=== PATIENT | male | born 1980 | race Caucasian/White ===

== ENCOUNTER → 2017-02-06 | Outpatient (CLI) | payer BC ==
[~2017-02-06] MED LIST: ASPEC81 PO; OXYC-57 PO
[2017-02-06 18:08] LABS: BLOOD UREA NITROGEN 14 mg/dl (7-18); CALCIUM 9.3 mg/dl (8.5-10.1); CARBON DIOXIDE 30 mmol/L (21-32); CHLORIDE 107 mmol/L (98-107); GLUCOSE 71 mg/dl (70-99); POTASSIUM 3.8 mmol/L (3.5-5.1); SODIUM 142 mmol/L (136-145)
== END | disposition home or self-care (01) ==
LOC: C.LABBFT 14:57
PROVIDERS: ATTEND Nurse Practitioner
DX: R39.9 Unspecified symptoms and signs involving the genitourinary system (principal); R35.0 Frequency of micturition

== ENCOUNTER → 2017-02-07 | Outpatient (CLI) | payer BC ==
[2017-02-09 01:34] LABS: CHLAMYDIA TRACH RNA*** NOT DETECTED (NOT DETECTED); GC (NEIS GONORRHOEAE)RNA** NOT DETECTED (NOT DETECTED)
== END | disposition home or self-care (01) ==
LOC: C.LABSPEC 12:25
PROVIDERS: ATTEND Nurse Practitioner
DX: R39.9 Unspecified symptoms and signs involving the genitourinary system (principal); R35.0 Frequency of micturition

== ENCOUNTER → 2017-02-12 | Outpatient (CLI) | payer BC ==
--- NOTE | 2017-02-12 08:33 | DIAGNOSTIC IMAGING REPORT ---
BLADDER ULTRASOUND, PRE AND POST VOID CLINICAL HISTORY: Urinary symptoms. COMPARISON STUDY: No previous studies for comparison. TECHNIQUE: Pre and post void sonography of the bladder was performed. FINDINGS: The prevoid bladder volume was 66 cc. Postvoid volume was 1 cc. The ureteral jets were not visualized. No bladder mass is identified by sonography. IMPRESSION: 1. Unremarkable bladder ultrasound. 2. No significant postvoid residual. Electronically signed by: Joseph Moreland M.D. 02/12/2017 8:32 AM Dictated Date/Time: 02/12/2017 8:22 AM
== END | disposition home or self-care (01) ==
LOC: C.ULTR 06:57
PROVIDERS: ATTEND Nurse Practitioner
DX: R35.0 Frequency of micturition (principal); R39.9 Unspecified symptoms and signs involving the genitourinary system

== ENCOUNTER 2017-08-04 11:09 | Inpatient (IN) | payer BC ==
[~2017-08-04] VITALS: Ht 190.5 cm; Wt 96.3 kg
[~2017-08-04 11:09] MED LIST changes: -ASPEC81 PO
[2017-08-04] MEDS ORDERED: SODIUM CHLORIDE 0.9% 1000ML 1,000 ML IV SCH (11:16)
[2017-08-04 11:34] LABS: BASO % 0.6 %; BASO ABS # 0.03 K/uL (0-0.2); COMPLETE YES; EOS % 6.4 %; HEMATOCRIT 50.5 % (42-52); IG% 0.2 %; LYMPH % 23.3 %; LYMPH ABS # 1.24 K/uL (1.2-3.4); MEAN CELL VOLUME 91.3 fL (80-100); MONO % 10.9 %; NEUT % 58.6 %; PLATELET COUNT 156 K/uL (130-400); RED BLOOD COUNT 5.53 M/uL (4.7-6.1); WHITE BLOOD COUNT 5.33 K/uL (4.8-10.8)
[2017-08-04 11:43] LABS: PARTIAL THROMBOPLASTIN RATIO 1.1; PROTHROMBIN TIME (PATIENT) 10.4 SECONDS (9.0-12.0)
--- NOTE | 2017-08-04 11:50 | DIAGNOSTIC IMAGING REPORT ---
CT OF THE HEAD WITHOUT CONTRAST CLINICAL HISTORY: Left-sided weakness. Stroke alert. COMPARISON STUDY: No previous studies for comparison. CT DOSE: 614.27 mGy.cm TECHNIQUE: Helical axial images of the head were obtained without IV contrast. Automated exposure control was utilized for the study. A dose lowering technique was utilized adhering to the principles of ALARA. FINDINGS: No acute intracranial hemorrhage, midline shift or mass effect is present. Ventricular system is normal. Basilar cisterns are patent. There are no extra axial collections. Tom-white differentiation is maintained and there are no findings to suggest acute dural sinus thrombosis or acute territorial infarct. Right maxillary sinus is largely opacified and likely contains a mucous retention cyst. There are no significant calvarial abnormalities. There is moderate mucosal thickening of the ethmoid sinuses and mild mucosal thickening of the left maxillary sinus. IMPRESSION: No acute intracranial findings. Electronically signed by: Joseph Moreland M.D. 08/04/2017 11:48 AM Dictated Date/Time: 08/04/2017 11:45 AM
[2017-08-04 11:55] LABS: ISTAT CREATININE 1.3 mg/dl (0.6-1.3); ISTAT HEMOGLOBIN 17.7 g/dl (14.0-18.0); ISTAT IONIZED CALCIUM 1.18 mmol/l (1.12-1.32)
--- NOTE | 2017-08-04 12:00 | DIAGNOSTIC IMAGING REPORT ---
CHEST ONE VIEW PORTABLE CLINICAL HISTORY: Stroke COMPARISON STUDY: Chest radiograph August 14, 2012. FINDINGS: Lung volumes are normal. There is an azygos fissure. Lungs are clear. No pneumothorax or pleural effusion is present. Cardiomediastinal silhouette is normal. Pulmonary vascularity is normal. IMPRESSION: No acute cardiopulmonary findings. Electronically signed by: Joseph Moreland M.D. 08/04/2017 11:59 AM Dictated Date/Time: 08/04/2017 11:58 AM
[2017-08-04 12:02] LABS: BLOOD UREA NITROGEN 18 mg/dl (7-18); BUN/CREATININE RATIO 12.3 (10-20); CALCIUM 8.9 mg/dl (8.5-10.1); CARBON DIOXIDE 27 mmol/L (21-32); CHLORIDE 102 mmol/L (98-107); CREATININE 1.43 mg/dl (0.60-1.40)
--- NOTE | 2017-08-04 12:03 | EMERGENCY ROOM VISIT NOTE ---
History Report prepared by Benjaminibporter: Heriberto Marti Under the Supervision of: Dr. Sridhar Jimenez M.D. 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 History of Present Illness The patient is a 37 year old male who presents to the Emergency Room with complaints of persistent numbness and weakness in the left side of body 45 minutes prior to arrival. He was stepping into a "third loader" this morning when he suddenly felt weak in the left side. He reports there wasn't enough strength in his left arm to move it. He also notes he was short of breath. The patient states he takes no daily medications and has no chronic medical problems. 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 A total of 10 systems reviewed and were otherwise negative. Past Medical & Surgical Medical Problems: (1) No significant past medical history Social History Smoking Status: Never Smoker Smokeless Tobacco Use: No Alcohol Use: occasionally Drug Use: none Marital Status: Housing Status: lives with family Occupation Status: employed Current/Historical Medications No Active Prescriptions or Reported Meds Allergies Coded Allergies: No Known Allergies (Unverified , NONE, 12/12/08) Physical Exam Vital Signs Date Time Temp Pulse Resp B/P (MAP) Pulse Ox O2 Delivery O2 Flow Rate FiO2 08/04/17 13:27 106 16 126/83 99 Room Air 08/04/17 12:46 77 18 133/92 97 Room Air 08/04/17 12:00 77 18 145/95 96 Room Air 08/04/17 11:55 96 Room Air 08/04/17 11:45 77 18 138/92 95 Room Air 08/04/17 11:19 98 08/04/17 11:10 36.7 98 18 147/88 94 Room Air Physical Exam GENERAL: Patient is a healthy-appearing well-nourished 37 year old male. HEAD: Normocephalic atraumatic EYES: Ocular movements intact pupils equal and react to light OROPHARYNX mucous membranes are moist no exudates present no erythema or edema present NECK: Supple no nuchal rigidity CHEST: Good equal expansion LUNGS: Clear and equal to auscultation CARDIAC: Normal S1 and S2 ABDOMEN: Soft nontender no guarding BACK: No CVA tenderness EXTREMITIES: No pain upon palpation normal muscle strength in all groups no clubbing cyanosis or edema. 5/5 strength bilaterally in both arms and both legs. NEURO: Patient is following commands and answering questions appropriately. Alert and oriented x3 Cranial Nerves 2-12 grossly intact Medical Decision & Procedures ER Provider Diagnostic Interpretation: Radiology results as stated below per my review and radiologist interpretation: CT OF THE HEAD WITHOUT CONTRAST CLINICAL HISTORY: Left-sided weakness. Stroke alert. COMPARISON STUDY: No previous studies for comparison. CT DOSE: 614.27 mGy.cm TECHNIQUE: Helical axial images of the head were obtained without IV contrast. Automated exposure control was utilized for the study. A dose lowering technique was utilized adhering to the principles of ALARA. FINDINGS: No acute intracranial hemorrhage, midline shift or mass effect is present. Ventricular system is normal. Basilar cisterns are patent. There are no extra axial collections. Tom-white differentiation is maintained and there are no findings to suggest acute dural sinus thrombosis or acute territorial infarct. Right maxillary sinus is largely opacified and likely contains a mucous retention cyst. There are no significant calvarial abnormalities. There is moderate mucosal thickening of the ethmoid sinuses and mild mucosal thickening of the left maxillary sinus. IMPRESSION: No acute intracranial findings. Electronically signed by: Joseph Moreland M.D. 08/04/2017 11:48 AM CHEST ONE VIEW PORTABLE CLINICAL HISTORY: Stroke COMPARISON STUDY: Chest radiograph August 14, 2012. FINDINGS: Lung volumes are normal. There is an azygos fissure. Lungs are clear. No pneumothorax or pleural effusion is present. Cardiomediastinal silhouette is normal. Pulmonary vascularity is normal. IMPRESSION: No acute cardiopulmonary findings. Electronically signed by: Joseph Moreland M.D. 08/04/2017 11:59 AM Laboratory Results 08/04/17 11:20 Red Blood Count 5.53, Mean Corpuscular Volume 91.3, Mean Corpuscular Hemoglobin 32.0, Mean Corpuscular Hemoglobin Concent 35.0, Mean Platelet Volume 12.0, Neutrophils (%) (Auto) 58.6, Lymphocytes (%) (Auto) 23.3, Monocytes (%) (Auto) 10.9, Eosinophils (%) (Auto) 6.4, Basophils (%) (Auto) 0.6, Neutrophils # (Auto ) 3.13, Lymphocytes # (Auto) 1.24, Monocytes # (Auto) 0.58, Eosinophils # (Auto ) 0.34, Basophils # (Auto) 0.03 08/04/17 11:20 08/04/17 13:02 Test 08/04/17 11:20 08/04/17 11:43 08/04/17 11:45 08/04/17 11:48 White Blood Count 5.33 K/uL (4.8-10.8) Red Blood Count 5.53 M/uL (4.7-6.1) Hemoglobin 17.7 g/dL (14.0-18.0) Hematocrit 50.5 % (42-52) Mean Corpuscular Volume 91.3 fL (80-100) Mean Corpuscular Hemoglobin 32.0 pg (25-34) Mean Corpuscular Hemoglobin Concent 35.0 g/dl (32-36) Platelet Count 156 K/uL (130-400) Mean Platelet Volume 12.0 fL (7.4-10.4) Neutrophils (%) (Auto) 58.6 % Lymphocytes (%) (Auto) 23.3 % Monocytes (%) (Auto) 10.9 % Eosinophils (%) (Auto) 6.4 % Basophils (%) (Auto) 0.6 % Neutrophils # (Auto) 3.13 K/uL (1.4-6.5) Lymphocytes # (Auto) 1.24 K/uL (1.2-3.4) Monocytes # (Auto) 0.58 K/uL (0.11-0.59) Eosinophils # (Auto) 0.34 K/uL (0-0.5) Basophils # (Auto) 0.03 K/uL (0-0.2) RDW Standard Deviation 42.3 fL (36.4-46.3) RDW Coefficient of Variation 12.7 % (11.5-14.5) Immature Granulocyte % (Auto) 0.2 % Immature Granulocyte # (Auto) 0.01 K/uL (0.00-0.02) Prothrombin Time 10.4 SECONDS (9.0-12.0) Prothromb Time International Ratio 1.0 (0.9-1.1) Activated Partial Thromboplast Time 27.3 SECONDS (21.0-31.0) Partial Thromboplastin Ratio 1.1 Est Creatinine Clear Calc Drug Dose 84.5 ml/min Estimated GFR () 72.0 Estimated GFR (Non- 62.1 BUN/Creatinine Ratio 12.3 (10-20) Calcium Level 8.9 mg/dl (8.5-10.1) Creatine Kinase MB 1.0 ng/ml (0.5-3.6) Creatine Kinase MB Ratio (0-3.0) Troponin I < 0.015 ng/ml (0-0.045) Bedside Hemoglobin 17.7 g/dl (14.0-18.0) Bedside Hematocrit 52 % (42-52) Bedside Sodium 139 mEq/L (135-144) Bedside Potassium 3.8 mEq/L (3.3-5.0) Bedside Chloride 101 mEq/L (101-112) Bedside Total CO2 27 mEq/l (24-31) Anion Gap 16.0 mmol/L (16-25) Bedside Blood Urea Nitrogen 19 mg/dl (7-18) Bedside Creatinine 1.3 mg/dl (0.6-1.3) Bedside Glucose (other) 121 mg/dl (70-99) Bedside Ionized Calcium (Sissy) 1.18 mmol/l (1.12-1.32) Bedside Troponin I < 0.030 ng/ml (0-0.045) Bedside Prothrombin Time INR 1.0 (0.9-1.1) Test 08/04/17 13:02 08/04/17 13:25 Magnesium Level 2.5 mg/dl (1.8-2.4) Total Creatine Kinase 129 U/L (39-308) Chemistry Specimen Hemolysis Urine Color YELLOW Urine Appearance CLEAR (CLEAR) Urine pH 7.5 (4.5-7.5) Urine Specific [place] 1.019 (1.000-1.030) Urine Protein NEG (NEG) Urine Glucose (UA) NEG (NEG) Urine Ketones NEG (NEG) Urine Occult Blood NEG (NEG) Urine Nitrite NEG (NEG) Urine Bilirubin NEG (NEG) Urine Urobilinogen NEG (NEG) Urine Leukocyte Esterase NEG (NEG) Labs reviewed by ED physician. Medications Administered Medications (Trade) Dose Ordered Sig/Zeinab Route Start Time Stop Time Status Last Admin Dose Admin Sodium Chloride 1,000 ml @ 50 mls/hr Q20H IV 08/04/17 11:16 08/04/17 14:38 DC 08/04/17 12:14 50 MLS/HR Magnesium Sulfate (Magnesium Sulfate) 1 gm NOW STAT IV 08/04/17 12:07 08/04/17 12:08 DC 08/04/17 12:41 1 GM Aspirin (Aspirin Chew) 324 mg NOW STAT PO 08/04/17 12:21 08/04/17 12:22 DC 08/04/17 12:44 324 MG Sodium Chloride 1,000 ml @ 999 mls/hr Q1H1M STAT IV 08/04/17 12:21 08/04/17 13:21 DC 08/04/17 12:44 999 MLS/HR ECG Indication: weakness Rate (beats per minute): 79 Rhythm: normal sinus Findings: no acute ischemic change, no ectopy ED Course 1130: Past medical records reviewed. The patient was evaluated in room B1. A complete history and physical examination was performed. 1116: Sodium Chloride 1,000 mL IV 1147: I spoke with Dr. Moreland, [facility] radiology. The patient's CT looks normal. 1151: I spoke with Dr. Garcia, [facility] Stroke Neurology. We discussed the patients case. The patient will be further evaluated. 1207: Magnesium Sulfate 1 gm IV 1221: Sodium 1,000 mL IV, Aspirin 324 mg PO. 1223: I reassessed the patient at this time. He is feeling better and resting comfortably. I discussed my recommendation that he stay in the hospital for further management. He verbalized complete understanding and agreement. 1227: I spoke with Dr. Zamora, [facility] Hospitalist. We discussed the patients case. The patient will be further evaluated. Medical Decision Prior records/ancillary studies reviewed and summarized above. Nursing notes reviewed. The patient's history was concerning for: Differential diagnosis: Etiologies such as metabolic, infection, hypo/hyperglycemia, electrolyte abnormalities, cardiac sources, intracerebral event, toxicologic, neurologic, as well as others were entertained. This is a 37-year-old male who presents emergency department one hour after he had a sudden onset of left leg and arm weakness. In addition to this he also had numbness and tingling to both his arm and leg in a stocking glove distribution. Based on these findings the patient was sent for CAT scan of the head. In the case was discussed with the on-call neurologist from [place]. He recommended that the patient receive a fluid bolus, aspirin and be admitted for stroke Workup. I did discuss the case with the hospitalist service who agreed to admit the patient. Patient was in agreement with the treatment plan. Medication Reconcilliation Current Medication List: was personally reviewed by me Blood Pressure Screening Patient's blood pressure: Elevated blood pressure Blood pressure disposition: Referred to PCP Consults Time Called: 1145 Consulting Physician: Dr. Garcia, [facility] St[facility] Neurology Returned Call: [address] Garcia, [facility] Stroke Neurology. We discussed the patients case. The patient will be further evaluated. Additional Consults: Time Called: 1225 Consulted Physician: Dr. Zamora, [facility] Hospitalist Returned Call: 1227 Additional Comments: I discussed the patients case with Dr. Zamora [facility] Hospitalist. The patient will be further evaluated. Impression Primary Impression: Left-sided weakness Scribe Attestation The scribe's documentation has been prepared under my direction and personally reviewed by me in its entirety. I confirm that the note above accurately reflects all work, treatment, procedures, and medical decision making performed by me. Departure Information Dispostion Being Evaluated By Hospitalist Prescriptions No Active Prescriptions or Reported Meds Referrals Durga Merida M.D. (PCP) Forms HOME CARE DOCUMENTATION FORM, IMPORTANT VISIT INFORMATION Patient Instructions My [facility]
[2017-08-04] MEDS ORDERED: MAGNESIUM SULFATE 1GM / D5W 1 GM BAG IV STA (12:07)
[2017-08-04] MEDS ORDERED: SODIUM CHLORIDE 0.9% 1000ML 1,000 ML IV STA (12:21)
[2017-08-04] MEDS ORDERED: ASPIRIN 81 MG CHEW PO STA (12:21)
[2017-08-04 12:52] LABS: GLUCOSE 127 mg/dl (70-99); SODIUM 136 mmol/L (136-145)
--- NOTE | 2017-08-04 13:08 | History and Physical ---
History & Physical Date & Time of Service: Aug 04, 2017 at 12:58 Chief Complaint: Left Arm Tingling, Sob, Tingling In Legs Primary Care Physician: Durga Merida M.D. History of Present Illness Mr. Patel presented to the ED this morning for left sided weakness. He began to feel symptoms at 1030 this morning doing outdoor work with a neighbor when he started having numbness and weakness in his left arm and left leg so he had his drive him to the ED. He had accompanying sob and dizziness. No headache or visual changes. Family did not see any facial droop, no change in speech. He began to feel his symptoms subside after he returned from CT scan. He does note that he has been experiencing left hand numbness on and off for a week but thought that it was carpal tunnel. No palpitations or chest pain. He has no significant past medical history and takes no medications. No history of migraine or headaches. 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 He has had a little bit of a cold - upper respiratory symptoms. He has had a little more stress than usual with his business but does not feel it is significant. Eating and drinking normally. He normally does not drink much during the day. A stroke alert was called and the ED discussed the patient with the [facility] neurologist and the decision was made not to administer tPA Family medical history includes father with CHF with pacer, htn and DM. Mother has htn. Siblings have no significant medical history. Social History Smoking Status: Current Every Day Smoker (1 cigarrette a week or so) Smokeless Tobacco Use: No Alcohol Use: socially (drinks once a week beer) Drug Use: none Marital Status: Housing status: lives with family (three daughters) Occupational Status: employed Multi-Drug Resistant Organisms History of MDRO: No Allergies Coded Allergies: No Known Allergies (Unverified , NONE, 12/12/08) Home Medications No Active Prescriptions or Reported Meds Review of Systems Constitutional: No fever, No chills, No weight loss Eyes: + problem reported (difficulty focusing, felt drunk when numbness started ) ENT: + nasal symptoms (nasal congestion) Respiratory: + shortness of breath, No cough (resolved now, but did have sob when numbness started) Abdomen: + nausea (Nauseas this morning), No vomiting, No diarrhea, No constipation Genitourinary - Male: No dysuria Neurologic: + numbness/tingling (see HPI) Physical Exam Vital Signs Date Time Temp Pulse Resp B/P (MAP) Pulse Ox O2 Delivery O2 Flow Rate FiO2 08/04/17 12:46 77 18 133/92 97 Room Air 08/04/17 12:00 77 18 145/95 96 Room Air 08/04/17 11:55 96 Room Air 08/04/17 11:45 77 18 138/92 95 Room Air 08/04/17 11:19 98 08/04/17 11:10 36.7 98 18 147/88 94 Room Air General: no distress Eyes: normal inspection, PERLL Respiratory: chest non tender, clear to auscultation, normal breath sounds, no respiratory distress, no accessory muscle use Cardiac: regular rate and rhythm, no rub or gallop, no murmur, no edema, no jvd GI/: active bowel sounds, no abd pain or tenderness, soft, non distended Extremities: normal range of motion, normal strength, non tender Neuro/Psych: alert and oriented x 3, normal mood and affect, decreased sensation left foot and ankle Skin: normal color, dry Diagnostics Laboratory Results Results Past 24 Hours Test 08/04/17 11:20 08/04/17 11:43 08/04/17 11:45 08/04/17 11:48 Range/Units White Blood Count 5.33 4.8-10.8 K/uL Red Blood Count 5.53 4.7-6.1 M/uL Hemoglobin 17.7 14.0-18.0 g/dL Hematocrit 50.5 42-52 % Mean Corpuscular Volume 91.3 80-100 fL Mean Corpuscular Hemoglobin 32.0 25-34 pg Mean Corpuscular Hemoglobin Concent 35.0 32-36 g/dl Platelet Count 156 130-400 K/uL Mean Platelet Volume 12.0 7.4-10.4 fL Neutrophils (%) (Auto) 58.6 % Lymphocytes (%) (Auto) 23.3 % Monocytes (%) (Auto) 10.9 % Eosinophils (%) (Auto) 6.4 % Basophils (%) (Auto) 0.6 % Neutrophils # (Auto) 3.13 1.4-6.5 K/uL Lymphocytes # (Auto) 1.24 1.2-3.4 K/uL Monocytes # (Auto) 0.58 0.11-0.59 K/uL Eosinophils # (Auto) 0.34 0-0.5 K/uL Basophils # (Auto) 0.03 0-0.2 K/uL RDW Standard Deviation 42.3 36.4-46.3 fL RDW Coefficient of Variation 12.7 11.5-14.5 % Immature Granulocyte % (Auto) 0.2 % Immature Granulocyte # (Auto) 0.01 0.00-0.02 K/uL Prothrombin Time 10.4 9.0-12.0 SECONDS Prothromb Time International Ratio 1.0 0.9-1.1 Activated Partial Thromboplast Time 27.3 21.0-31.0 SECONDS Partial Thromboplastin Ratio 1.1 Sodium Level 136 136-145 mmol/L Potassium Level 3.5-5.1 mmol/L Chloride Level 102 98-107 mmol/L Carbon Dioxide Level 27 21-32 mmol/L Anion Gap 7.0 16.0 16-25 mmol/L Blood Urea Nitrogen 18 7-18 mg/dl Creatinine 1.43 0.60-1.40 mg/dl Est Creatinine Clear Calc Drug Dose 84.5 ml/min Estimated GFR () 72.0 Estimated GFR (Non- 62.1 BUN/Creatinine Ratio 12.3 10-20 Random Glucose 127 70-99 mg/dl Calcium Level 8.9 8.5-10.1 mg/dl Magnesium Level 1.8-2.4 mg/dl Total Creatine Kinase 39-308 U/L Creatine Kinase MB 1.0 0.5-3.6 ng/ml Creatine Kinase MB Ratio 0-3.0 Troponin I < 0.015 0-0.045 ng/ml Bedside Hemoglobin 17.7 14.0-18.0 g/dl Bedside Hematocrit 52 42-52 % Bedside Sodium 139 135-144 mEq/L Bedside Potassium 3.8 3.3-5.0 mEq/L Bedside Chloride 101 101-112 mEq/L Bedside Total CO2 27 24-31 mEq/l Bedside Blood Urea Nitrogen 19 7-18 mg/dl Bedside Creatinine 1.3 0.6-1.3 mg/dl Bedside Glucose (other) 121 70-99 mg/dl Bedside Ionized Calcium (Sissy) 1.18 1.12-1.32 mmol/l Bedside Troponin I < 0.030 0-0.045 ng/ml Bedside Prothrombin Time INR 1.0 0.9-1.[address] Head IMPRESSION: No acute intracranial findings. CXR normal Impression Assessment and Plan Mr. Patel is a 37 year old man here for left arm and leg weakness lasting approximately 45 minutes. He does not have other PmHx. R/o TIA vs complex migraine - admit telemetry - MRI w and w/o contrast - Echo - Aha diet - lipids, HgbA1c, cbc in am - consult neuro - PT/OT eval Acute kidney injury - BUN and creat 18 and 1.43 - IVF - repeat prp in am DVT proph enoxaprin Full code Level of Care Telemetry Advanced Directives Existing Advance Directive: No Existing Living Will: No Existing Power of Fashion Marketer: Yes () Existing Health Care Proxy: No Resuscitation Status FULL RESUSCITATION VTE Prophylaxis VTE Risk Assessment Done? Y/N: Yes Risk Level: Moderate
[2017-08-04] MEDS ORDERED: PHARMACIST DISCHARGE MED REC CONSULT PRN (13:30)
[2017-08-04 13:35] VITALS: O2SAT 97; Ht 190.5 cm; Wt 96.3 kg
[2017-08-04 13:37] LABS: MAGNESIUM 2.5 mg/dl (1.8-2.4); POTASSIUM 4.2 mmol/L (3.5-5.1)
[2017-08-04 13:42] LABS: URINE APPEARANCE CLEAR (CLEAR); URINE BILIRUBIN NEG (NEG); URINE COLOR YELLOW; URINE NITRITE NEG (NEG); URINE PH 7.5 (4.5-7.5); URINE SPECIFIC GRAVITY 1.019 (1.000-1.030); UROBILINOGEN NEG (NEG); ZZUR CULT IF INDIC CLEAN CATCH NO
[2017-08-04 13:43] LABS: MANUAL MICROSCOPIC REQUIRED? NO; REVIEW REQ? NO
[2017-08-04] MEDS ORDERED: ACETAMINOPHEN 325 MG TAB PO PRN (13:45)
--- NOTE | 2017-08-04 14:44 | DIAGNOSTIC IMAGING REPORT ---
MRI OF THE BRAIN WITHOUT AND WITH IV CONTRAST CLINICAL HISTORY: Stroke. Left arm and leg numbness and tingling. COMPARISON STUDY: Head CT performed earlier today. TECHNIQUE: Utilizing a 1.5 Cydney magnet and dedicated coil, multiplanar, multiecho imaging of the brain was performed pre and postcontrast administration. IV administration of 9.5 mL of Gadavist contrast was uneventful. FINDINGS: There are no foci of restricted diffusion to suggest acute infarct. No acute intracranial hemorrhage, midline shift or mass effect is present. Brain volume is normal. Ventricular system is normal. Basilar cisterns are patent. Flow-voids for the major intracranial vessels are present. There is no intracranial mass or pathologic enhancement. A mucous retention cyst within the right maxillary sinus is noted. Note is made of polypoid mucosal thickening of the ethmoid and left maxillary sinuses. No areas of parenchymal signal abnormality are present. Calvarial signal is normal. IMPRESSION: 1. No acute intracranial findings. 2. No intracranial masses or pathologic enhancement. 3. Paranasal sinus disease, as described above. Electronically signed by: Joseph Moreland M.D. 08/04/2017 2:43 PM Dictated Date/Time: 08/04/2017 2:39 PM
[2017-08-04 15:19] VITALS: BP 136/94; PULSE 72; TEMP 36.7; O2SAT 96
[2017-08-04] MEDS: SODIUM CHLORIDE 0.9% 1000ML 1,000 ML IV SCH (15:33)
[2017-08-04 19:26] LABS: BENZODIAZEPINE, URINE NEG (NEG); COCAINE,URINE NEG (NEG); PHENCYCLIDINE, URINE NEG (NEG)
[2017-08-04 19:41] VITALS: BP 125/72; PULSE 59; TEMP 36.6; O2SAT 94
[2017-08-04 23:16] VITALS: BP 120/70; PULSE 62; TEMP 36.5; O2SAT 96
[2017-08-05 03:44] VITALS: BP 115/70; PULSE 62; TEMP 36.4; O2SAT 94
[2017-08-05 03:48] LABS: BASO % 0.8 %; BASO ABS # 0.05 K/uL (0-0.2); COMPLETE YES; EOS % 6.3 %; HEMATOCRIT 43.2 % (42-52); IG% 0.2 %; LYMPH % 25.6 %; LYMPH ABS # 1.59 K/uL (1.2-3.4); MEAN CELL VOLUME 91.3 fL (80-100); MEAN CORPUSCULAR HEMOGLOBIN 31.1 pg (25-34); MEAN PLATELET VOLUME 11.8 fL (7.4-10.4); MONO % 11.6 %; NEUT % 55.5 %; PLATELET COUNT 138 K/uL (130-400); RED BLOOD COUNT 4.73 M/uL (4.7-6.1)
[2017-08-05 04:04] LABS: BLOOD UREA NITROGEN 13 mg/dl (7-18); BUN/CREATININE RATIO 13.7 (10-20); CALCIUM 7.9 mg/dl (8.5-10.1); CARBON DIOXIDE 25 mmol/L (21-32); CHLORIDE 104 mmol/L (98-107); CREATININE 0.94 mg/dl (0.60-1.40); GLUCOSE 100 mg/dl (70-99); POTASSIUM 3.9 mmol/L (3.5-5.1); SODIUM 135 mmol/L (136-145)
[2017-08-05 04:09] LABS: CHOLESTEROL 194 mg/dl (0-200); HDL CHOLESTEROL 39 mg/dl; LDL CHOLESTEROL CALCULATED 116 mg/dl; TRIGLYCERIDES 197 mg/dl (0-150); VERY LOW DENSITY LIPOPROT CALC 39 mg/dl
[2017-08-05] MEDS: SODIUM CHLORIDE 0.9% 1000ML 1,000 ML IV SCH (04:44)
[2017-08-05 08:01] VITALS: BP 121/75; PULSE 66; TEMP 36.6; O2SAT 94
[2017-08-05] MEDS ORDERED: ENOXAPARIN 40 MG/0.4 ML SYR SQ SCH (09:00)
[2017-08-05] MEDS ORDERED: ASPIRIN 81 MG ECTAB PO SCH (09:00)
[2017-08-05 09:18] VITALS: BP 155/85; PULSE 90; O2SAT 96
[2017-08-05] MEDS ORDERED: ASPIRIN 81 MG ECTAB PO ONE (09:36)
--- NOTE | 2017-08-05 09:51 | Neurology Consultation ---
Neurology Consultation Date of Consultation: Aug 05, 2017. Attending Physician: Mary Oliva MD Primary Care Physician: Durga Merida M.D. Reason for Consultation: Patient is a 37-year-old, was asked to see the request of Dr. Zamora, for new onset left-sided dysesthesias and other symptomatology History of Present Illness Source: patient, caregiver, hospital records Patient has no significant past medical history or neurologic history, with no heart disease, hypertension, diabetes, dyslipidemia, head trauma, or significant /frequent headaches. He does say that he will get occasional/rare pain around his left eye. He has had no headaches recently. Patient has been working hard with the last month and his multiple jobs are stressful. He woke on August 04 at 0430 hours feeling fine. He was outside working with equipment and had the sudden onset, around 1030 hours, of a nonspecific lightheadedness/dizziness, shortness of breath and trouble focusing his vision. All of the symptoms lasted about a minute and then resolved. He stood for a minute or so and was talking to his neighbor. There was no speech problems or confusion. He got back into the equipment he was operating and had the sudden onset, about 5 minutes later, of left-sided tingling and dysesthesias. He is uncertain if anything was actually weak and he certainly could move his arm and leg, stand and walk. He had no acute mentation or speech problems, headache (before during or after) , incontinence, chest pain, right-sided symptoms or vision problems On August 04, he arrived at the emergency room at 1110 hours, with a temperature 36.7, pulse 98, respiratory rate 18, blood pressure 147/88 CT scan of the head was unremarkable. Chest x-ray was unremarkable. The examination was unremarkable. The worst of his symptoms went away by 45 minutes and he had some residual tingling in the left side which lasted another hour so, being resolved by the time he came to the floor. He had no other symptoms or issues and feels quite normal today. He had no problems with vital signs or cardiac dysrhythmia overnight. MRI of the brain was unremarkable with no new stroke. I reviewed this film and report and there are no new or old abnormalities of any type. Laboratory studies showed a normal CBC and Chem profile with a triglyceride of 197. Past Medical/Surgical History Medical Problems: (1) Left-sided weakness Status: Acute No significant past medical problems noted wisdom teeth removal as only surgery Family History Mother, age 72, has hypertension. Father, age 76, has congestive heart failure , hypertension, and diabetes. Social History Patient smokes 1 or 2 cigarettes a month. He has 1 or 2 drinks of alcohol per week at most. 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 Smoking Status: Current some day smoker Smokeless Tobacco Use: No Alcohol Use: socially (drinks once a week beer) Drug Use: none Marital Status: Housing Status: lives with family Occupation Status: employed Allergies Coded Allergies: No Known Allergies (Unverified , NONE, 12/12/08) Current Inpatient Medications Current Inpatient Medications Medications (Trade) Dose Ordered Sig/Zeinab Route Start Time Stop Time Status Last Admin Dose Admin Miscellaneous Information (Pharmacist Discharge Med Rec Consult) 1 ea UD PRN N/A 08/04/17 13:30 09/03/17 13:29 Sodium Chloride 1,000 ml @ 100 mls/hr Q10H IV 08/04/17 14:45 09/03/17 14:44 08/05/17 04:44 100 MLS/HR Enoxaparin Sodium (Lovenox Inj) 40 mg QAM SQ 08/05/17 09:00 09/04/17 08:59 08/05/17 08:09 40 MG Acetaminophen (Tylenol Tab) 650 mg Q4H PRN PO 08/04/17 13:45 09/03/17 13:44 Review of Systems Constitutional: No weakness, No fatigue Eyes: No worsening of vision, No diplopia ENT: No hearing loss, No tinnitus, No trouble swallowing Respiratory: No cough, No shortness of breath Cardiovascular: No chest pain, No palpitations Abdomen: No pain, No nausea Musculoskeletal: No joint pain, No muscle pain Genitourinary - Male: No dysuria, No urinary incontinence Neurologic: No memory loss, No weakness, No numbness/tingling, No vertigo, No balance problems Psychiatric: No depression symptoms, No anxiety Endocrine: No fatigue Hematologic / Lymphatic: No abnormal bleeding/bruising Integumentary: No rash Allergic / Immunologic: No hives Physical Exam Vital Signs (Past 24 Hrs): Date Time Temp Pulse Resp B/P (MAP) Pulse Ox O2 Delivery O2 Flow Rate FiO2 08/05/17 09:18 90 96 08/05/17 08:01 36.6 66 16 121/75 (90) 94 08/05/17 04:00 Room Air 08/05/17 03:44 36.4 62 18 115/70 (85) 94 Room Air 08/05/17 00:01 Room Air 08/04/17 23:16 36.5 62 20 120/70 (87) 96 Room Air 08/04/17 20:00 Room Air 08/04/17 19:41 36.6 59 18 125/72 (89) 94 Room Air 08/04/17 16:00 Room Air 08/04/17 15:19 36.7 72 16 136/94 (108) 96 Room Air 08/04/17 15:05 81 18 134/84 97 08/04/17 13:35 97 Room Air 08/04/17 13:27 106 16 126/83 99 Room Air 08/04/17 12:46 77 18 133/92 97 Room Air 08/04/17 12:00 77 18 145/95 96 Room Air 08/04/17 11:55 96 Room Air 08/04/17 11:45 77 18 138/92 95 Room Air 08/04/17 11:19 98 08/04/17 11:10 36.7 98 18 147/88 94 Room Air Patient is right-handed. The patient is awake and alert. Speech is normal without aphasia or dysarthria. Mentation and thought processes are intact with orientation and normal fund of knowledge. Mood and affect are normal and appropriate. Appearance and grooming are normal. Long and short-term memory are intact. The discs are sharp with positive venous pulsations. There are no exudates, hemorrhages, or blood vessel changes seen. Pupils are 4mm bilaterally and reactive to light. Extraocular eye muscles are intact without nystagmus. Visual acuity and visual frazier seem normal grossly to confrontation. There are no deficits to sensation of the face bilaterally. Corneal reflexes are positive bilaterally. Facial strength and symmetry is normal bilaterally. Hearing seems intact grossly to voice and finger rub. Palate moves well without asymmetry. There is normal sternocleidomastoid and trapezius strength bilaterally. Tongue is midline with good strength bilaterally. Neck is with full range of motion without discomfort. There are no cervical bruits. There are no cranial or ocular bruits. Heart is without murmur. Cervical, thoracic, and lumbar spine are nontender to palpation. Gait is normal. There is good arm swing, turn, stance, and balance. With outstretched arms there is no drift. There are no resting, postural, or action tremors. There is no ataxia with [id number] testing. There is good facility in the hands. There are no abnormal involuntary movements noted. Motor strength is 5/5 diffusely in the arms bilaterally including deltoids, biceps, brachioradialis, wrist flexors and extensors, acls nurse, and intrinsic hand muscles. Motor strength is 5/5 diffusely in the legs bilaterally including hip flexors, quadriceps, hamstring, gastrocnemius, tibialis anterior, tibialis posterior, and peroneii muscles bilaterally. Toe extensors are normal and there is good bulk in the extensor digitorum brevis muscle bilaterally. The limbs have good tone without rigidity or spasticity, and there is no atrophy noted. Muscle bulk is normal, there is no tenderness, no myotonia noted to percussion, and no fasciculations seen. Sensory examination is intact to pin and touch throughout all four limbs. Reflexes are 2/4 in the biceps, triceps, brachioradialis, quadriceps, and Achilles tendons bilaterally. Toes are downgoing with plantar stimulation bilaterally. Peripheral pulses are present and of normal quality distally in all four limbs. There is no peripheral edema noted. Laboratory Results Past 24 Hours: 08/05/17 03:24 Red Blood Count 4.73, Mean Corpuscular Volume 91.3, Mean Corpuscular Hemoglobin 31.1, Mean Corpuscular Hemoglobin Concent 34.0, Mean Platelet Volume 11.8, Neutrophils (%) (Auto) 55.5, Lymphocytes (%) (Auto) 25.6, Monocytes (%) (Auto) 11.6, Eosinophils (%) (Auto) 6.3, Basophils (%) (Auto) 0.8, Neutrophils # (Auto ) 3.44, Lymphocytes # (Auto) 1.59, Monocytes # (Auto) 0.72, Eosinophils # (Auto ) 0.39, Basophils # (Auto) 0.05 08/05/17 03:24 Test 08/04/17 11:20 08/04/17 11:43 08/04/17 11:45 08/04/17 11:48 Prothrombin Time 10.4 SECONDS (9.0-12.0) Prothromb Time International Ratio 1.0 (0.9-1.1) Activated Partial Thromboplast Time 27.3 SECONDS (21.0-31.0) Partial Thromboplastin Ratio 1.1 Creatine Kinase MB 1.0 ng/ml (0.5-3.6) Creatine Kinase MB Ratio (0-3.0) Bedside Hemoglobin 17.7 g/dl (14.0-18.0) Bedside Hematocrit 52 % (42-52) Bedside Sodium 139 mEq/L (135-144) Bedside Potassium 3.8 mEq/L (3.3-5.0) Bedside Chloride 101 mEq/L (101-112) Bedside Total CO2 27 mEq/l (24-31) Bedside Blood Urea Nitrogen 19 mg/dl (7-18) Bedside Creatinine 1.3 mg/dl (0.6-1.3) Bedside Glucose (other) 121 mg/dl (70-99) Bedside Ionized Calcium (Sissy) 1.18 mmol/l (1.12-1.32) Bedside Troponin I < 0.030 ng/ml (0-0.045) Bedside Prothrombin Time INR 1.0 (0.9-1.1) Test 08/04/17 11:51 08/04/17 13:02 08/04/17 13:25 08/05/17 03:24 Bedside Glucose 99 mg/dl (70-99) Magnesium Level 2.5 mg/dl (1.8-2.4) Total Creatine Kinase 129 U/L (39-308) Chemistry Specimen Hemolysis Urine Color YELLOW Urine Appearance CLEAR (CLEAR) Urine pH 7.5 (4.5-7.5) Urine Specific [place] 1.019 (1.000-1.030) Urine Protein NEG (NEG) Urine Glucose (UA) NEG (NEG) Urine Ketones NEG (NEG) Urine Occult Blood NEG (NEG) Urine Nitrite NEG (NEG) Urine Bilirubin NEG (NEG) Urine Urobilinogen NEG (NEG) Urine Leukocyte Esterase NEG (NEG) Urine Opiates Screen NEG (NEG) Urine Methadone, Qualitative NEG (NEG) Urine Barbiturates NEG (NEG) Urine Phencyclidine (PCP) Level NEG (NEG) Ur Amphetamine/Methamphetamine NEG (NEG) MDMA (Ecstasy) Screen NEG (NEG) Urine Benzodiazepines Screen NEG (NEG) Urine Cocaine Metabolite NEG (NEG) Urine Marijuana (THC) NEG (NEG) White Blood Count 6.20 K/uL (4.8-10.8) Red Blood Count 4.73 M/uL (4.7-6.1) Hemoglobin 14.7 g/dL (14.0-18.0) Hematocrit 43.2 % (42-52) Mean Corpuscular Volume 91.3 fL (80-100) Mean Corpuscular Hemoglobin 31.1 pg (25-34) Mean Corpuscular Hemoglobin Concent 34.0 g/dl (32-36) Platelet Count 138 K/uL (130-400) Mean Platelet Volume 11.8 fL (7.4-10.4) Neutrophils (%) (Auto) 55.5 % Lymphocytes (%) (Auto) 25.6 % Monocytes (%) (Auto) 11.6 % Eosinophils (%) (Auto) 6.3 % Basophils (%) (Auto) 0.8 % Neutrophils # (Auto) 3.44 K/uL (1.4-6.5) Lymphocytes # (Auto) 1.59 K/uL (1.2-3.4) Monocytes # (Auto) 0.72 K/uL (0.11-0.59) Eosinophils # (Auto) 0.39 K/uL (0-0.5) Basophils # (Auto) 0.05 K/uL (0-0.2) RDW Standard Deviation 42.8 fL (36.4-46.3) RDW Coefficient of Variation 12.8 % (11.5-14.5) Immature Granulocyte % (Auto) 0.2 % Immature Granulocyte # (Auto) 0.01 K/uL (0.00-0.02) Anion Gap 6.0 mmol/L (3-11) Est Creatinine Clear Calc Drug Dose 128.6 ml/min Estimated GFR () 119.6 Estimated GFR (Non- 103.2 BUN/Creatinine Ratio 13.7 (10-20) Calcium Level 7.9 mg/dl (8.5-10.1) Troponin I < 0.015 ng/ml (0-0.045) Triglycerides Level 197 mg/dl (0-150) Cholesterol Level 194 mg/dl (0-200) HDL Cholesterol 39 mg/dl LDL Cholesterol, Calculated 116 mg/dl VLDL Cholesterol, Calculated 39 mg/dl Cholesterol/HDL Ratio 5.0 Imaging MRI OF THE BRAIN WITHOUT AND WITH IV CONTRAST CLINICAL HISTORY: Stroke. Left arm and leg numbness and tingling. COMPARISON STUDY: Head CT performed earlier today. TECHNIQUE: Utilizing a 1.5 Cydney magnet and dedicated coil, multiplanar, multiecho imaging of the brain was performed pre and postcontrast administration. IV administration of 9.5 mL of Gadavist contrast was uneventful. FINDINGS: There are no foci of restricted diffusion to suggest acute infarct. No acute intracranial hemorrhage, midline shift or mass effect is present. Brain volume is normal. Ventricular system is normal. Basilar cisterns are patent. Flow-voids for the major intracranial vessels are present. There is no intracranial mass or pathologic enhancement. A mucous retention cyst within the right maxillary sinus is noted. Note is made of polypoid mucosal thickening of the ethmoid and left maxillary sinuses. No areas of parenchymal signal abnormality are present. Calvarial signal is normal. IMPRESSION: 1. No acute intracranial findings. 2. No intracranial masses or pathologic enhancement. 3. Paranasal sinus disease, as described above. Electronically signed by: Joseph Moreland M.D. 08/04/2017 2:43 PM Impression Episode, August 04, of nonspecific symptoms, lasting a short time, consisting of mostly some dysesthesias of the left hand and foot. He is back to baseline currently with no symptomatology, no focal neurologic signs, meningeal signs, or encephalopathy. The etiology of these symptoms may be related to stress/fatigue, strenuous physical labor, and possibly elevated blood pressure. He certainly did not have a stroke (MRI of the brain was entirely within normal limits) and I do not believe this patient had a TIA in a classic sense. This was probably more vasospasm or nonspecific vascular origin. He does not have a history of migraines however. He does have mildly elevated triglycerides. Plan 1. Carotid ultrasound 2. Echocardiogram 3. MR angiography of the head was ordered. 4. Initiate 81 milligram aspirin tablet daily. 5. Consider medication for blood pressure and/or for dyslipidemia. I will leave this to his other clinicians. I have spoken with Dr. Oliva regarding this case including differential diagnosis and treatment options. I could follow up as an outpatient if desired.
--- NOTE | 2017-08-05 10:27 | DIAGNOSTIC IMAGING REPORT ---
Brain MRA HISTORY: left sided weakness/numbess, r/o aneurysm TECHNIQUE: 3-D [id number] MRA of the brain was performed without contrast. COMPARISON STUDY: Brain MRI 08/04/2017. FINDINGS: Visualized intracranial internal carotid arteries, distal vertebral arteries, and basilar artery are widely patent. There is no significant stenosis, occlusion, or aneurysm seen within the bilateral ACAs, MCAs, or playground monitor. IMPRESSION: No significant stenosis, occlusion, or aneurysm within the [place]. Electronically signed by: Gui Graves M.D. 08/05/2017 10:26 AM Dictated Date/Time: 08/05/2017 10:22 AM
--- NOTE | 2017-08-05 10:43 | DIAGNOSTIC IMAGING REPORT ---
BILATERAL CAROTID DOPPLER STUDY HISTORY: left sided numbness COMPARISON: None. TECHNIQUE: Real-time, grayscale, and color Doppler sonography of the carotid arteries was performed. Imaging reviewed in the transverse and longitudinal planes. All measurements were calculated based on NASCET criteria. FINDINGS: Antegrade flow is seen in the bilateral vertebral arteries. The brachial pressures are hemodynamically similar. No active cirrhotic plaque identified. The peak systolic velocity within the right ICA is 89 cm/s. The right systolic ratio is 0.8. The peak systolic velocity within the left ICA is 105 cm/s. The left systolic ratio is 1. IMPRESSION: No hemodynamically significant stenosis seen within the carotid arteries. Electronically signed by: Gui Graves M.D. 08/05/2017 10:41 AM Dictated Date/Time: 08/05/2017 10:40 AM
[2017-08-05] MEDS ORDERED: ASPEC81 PO (11:51)
--- NOTE | 2017-08-05 11:57 | Discharge Instructions ---
Discharge Instructions Date of Service Aug 05, 2017. Admission Reason for Admission: Left-sided paresthesias, Acute kidney injury Discharge Discharge Diagnosis / Problem: Left-sided paresthesias, Acute kidney injury Discharge Goals Goal(s): Improve disease control, Diagnostic testing, Therapeutic intervention Activity Recommendations Activity Limitations: resume your previous activity . Instructions / Follow-Up Instructions / Follow-Up You were admitted with left sided numbness and acute kidney injury due to dehydration. You had multiple tests to rule out stroke and these were all negative. The Neurologist thinks this was NOT a stroke or TIA ("mini stroke"). This may have been brought on by spasm of a small blood vessel in the brain due to stress or perhaps dehydration. Nonetheless, it is recommended that you start taking a baby aspirin 81 mg once daily for stroke prevention. Your blood pressure and cholesterol do not need to be treated. Your triglycerides were mildly elevated and your "good cholesterol" (HDL) was a little low--> exercise and increasing your intake of fish and olive oil can help improve these numbers. You should not smoke cigarettes ever. Your kidney function improved back to normal after you received IV fluids. You should work on drinking at least 8 glasses of water every day. Please follow up with your family doctor within 1-2 weeks after discharge. Current Hospital Diet Patient's current hospital diet: AHA Diet (Heart Healthy) Discharge Diet Recommended Diet: AHA Diet (Heart Healthy) Procedures Procedures Performed: MRI Brain MR Angiogram Head Carotid artery ultrasound Echocardiogram Chest xray Head CT Pending Studies Studies pending at discharge: no Laboratory Results Hemoglobin A1c Test 08/05/17 03:24 Range/Units Lipid Panel Test 08/05/17 03:24 Range/Units Triglycerides Level 197 H 0-150 mg/dl Cholesterol Level 194 0-200 mg/dl HDL Cholesterol 39 mg/dl Cholesterol/HDL Ratio 5.0 LDL Cholesterol, Calculated 116 mg/dl Medical Emergencies . Who to Call and When: Medical Emergencies: If at any time you feel your situation is an emergency, please call 911 immediately. . Non-Emergent Contact Non-Emergency issues call your: Primary Care Provider you have recurrence of your symptoms, or for any other acute concerns. . . "Provider Documentation" section prepared by Mary Oliva. . VTE Core Measure Inpt VTE Proph given/why not?: Enoxaparin (Lovenox)SQ
[2017-08-05 12:03] VITALS: BP 155/85; PULSE 90; TEMP 36.6; O2SAT 96
--- NOTE | 2017-08-05 12:26 | ECHOCARDIOGRAM REPORT ---
*NOTICE TO RECEIVING DEMOCRAT AGENCY This information is strictly Confidential and protected under [place] law. [place] law prohibits you from making any further disclosure of this information unless further disclosure is expressly permitted by the written consent of the person to whom it pertains or is authorized by law. A general authorization for the release of medical or other information is not sufficient for this purpose. Hospital accepts no responsibility if the information is made available to any other person, INCLUDING THE PATIENT. Interpretation Summary * Name: HEATHER LOPEZ Study Date: 08/05/2017 10:28 AM BP: 126/83 mmHg * Patient Location: [facility] HR: 71 * : 1980 (M/d/yyyy) Gender: Male Height: 75 in * Age: 37 yrs Ethnicity: [place] Weight: 207 lb * Ordering Physician: Andreina Robison * Referring Physician: Self, Referred * Performed By: Niall Hwang RDCS * * Reason For Study: Cerebral ischemia/embolus * BSA: 2.2 m2 * -- Conclusions -- * 1. Normal LV size and wall thickness. * 2. Normal LV systolic function. LVEF 55-60%. No regional wall motion abnormalities. * 3. Normal RV size and function. * 4. No significant valvular pathology. * 5. Negative saline contrast study for interatrial shunt. * 6. No prior studies for comparison. Procedure Details * A complete two-dimensional transthoracic echocardiogram was performed (2D, M-mode, Doppler and color flow Doppler). * The study was technically adequate. * A saline contrast injection was performed to assess for cardiac shunting. * The injection was performed through an intravenous line in the right arm. * The attending nurse who injected the saline contrast was LUANN Gaona. Left Ventricle * The left ventricle is grossly normal size. * There is normal left ventricular wall thickness. * Ejection Fraction = 55-60%. * No regional wall motion abnormalities noted. Right Ventricle * The right ventricle is grossly normal size. * The right ventricular systolic function is normal as assessed by tricuspid annular plane systolic excursion (TAPSE) (normal >1.5 cm). Atria * The left atrial size is normal. * Right atrial size is normal. * Injection of contrast documented no interatrial shunt. Mitral Valve * The mitral valve is grossly normal. * Mitral stenosis is absent. * Significant mitral regurgitation is absent. Tricuspid Valve * The tricuspid valve is not well visualized, but is grossly normal. * There is no tricuspid stenosis. * There is trace tricuspid regurgitation. Aortic Valve * The aortic valve opens well. * The aortic valve is trileaflet. * No hemodynamically significant valvular aortic stenosis. * There is no significant aortic regurgitation. Pulmonic Valve * The pulmonary valve is inadequately visualized, but the Doppler data is adequate for interpretation. * Pulmonic stenosis is absent. * Trace pulmonic valvular regurgitation. Great Vessels * The aortic root and proximal ascending aorta are normal sized. Pericardium/Pleural * There is no pericardial effusion. Great Vessels * Normal inferior vena cava size and collapsability with sniff indicates a normal right atrial pressure of 3 mmHg * There is no evidence of pulmonary hypertension. The PA systolic pressure is less than 36 mmHg. MMode 2D Measurements and Calculations IVSd 0.89 cm IVSs 1.5 cm LVIDd 5.1 cm LVIDs 3.3 cm LVPWd 0.89 cm LVPWs 1.4 cm IVS/LVPW 1.0 FS 34.3 % EDV(Teich) 121.7 ml ESV(Teich) 44.9 ml EF(Teich) 63.1 % EDV(cubed) 129.7 ml ESV(cubed) 36.7 ml EF(cubed) 71.7 % % IVS thick 68.2 % % LVPW thick 61.9 % LV mass(C)d 158.8 grams LV mass(C)dI 71.3 grams/m\S\2 LV mass(C)s 173.8 grams LV mass(C)sI 78.1 grams/m\S\2 SV(Teich) 76.8 ml SI(Teich) 34.5 ml/m\S\2 SV(cubed) 93.0 ml SI(cubed) 41.8 ml/m\S\2 Ao root diam 3.3 cm Ao root area 8.4 cm\S\2 ACS 2.2 cm LA dimension 3.6 cm asc Aorta Diam 3.1 cm LA/Ao 1.1 LVOT diam 2.3 cm LVOT area 4.1 cm\S\2 LVAd ap4 32.1 cm\S\2 LVLd ap4 8.2 cm EDV(MOD-sp4) 102.9 ml EDV(sp4-el) 106.7 ml LVAs ap4 18.5 cm\S\2 LVLs ap4 6.9 cm ESV(MOD-sp4) 40.2 ml ESV(sp4-el) 42.2 ml EF(MOD-sp4) 60.9 % EF(sp4-el) 60.4 % SV(MOD-sp4) 62.7 ml SI(MOD-sp4) 28.2 ml/m\S\2 SV(sp4-el) 64.5 ml SI(sp4-el) 28.9 ml/m\S\2 Doppler Measurements and Calculations MV E max vernon 63.6 cm/sec MV A max vernon 62.6 cm/sec MV E/A 1.0 MV dec time 0.18 sec Ao V2 max 109.5 cm/sec Ao max PG 4.8 mmHg Ao max PG (full) 1.5 mmHg JATIN(V,A) 3.5 cm\S\2 JATIN(V,D) 3.5 cm\S\2 LV V1 max PG 3.3 mmHg LV V1 max 91.4 cm/sec PA V2 max 99.2 cm/sec PA max PG 3.9 mmHg
--- NOTE | 2017-08-05 13:31 | Discharge Summary ---
Discharge Summary Date of Service Aug 05, 2017. Discharge Summary Admission Date: Aug 04, 2017 at 13:32 Discharge Date: Aug 05, 2017 Discharge Disposition: Home Principal Diagnosis: Left sided paresthesias Problems/Secondary Diagnoses: CASIMIRO Hypertriglyceridemia Procedures: MRI Brain Head CT MRA Head Carotid US CXR ECHO Consultations: Neurology Medication Reconciliation New Medications: Aspirin (Aspirin EC Low Dose) 81 Mg Ectab 81 MG PO QAM for 30 Days Referrals At Discharge Follow up Referrals: Physician Referral - Within 1-2 Weeks with Durga Merida M.D. Discharge Exam Pt feeling great. All symptoms of left sided paresthesias resolved shortly after arrival in ER and have not returned since. He denies any other problems. Discussed case with Neurology today. All testing negative. Review of Systems: Constitutional: No fever, No chills Eyes: No problem reported ENT: + nasal symptoms (has had nasal congestion with some yellow mucus drainage now improving x 2-3 days), No problem reported (no facial pain, no headache) Respiratory: No shortness of breath Cardiovascular: No chest pain Abdomen: No pain, No nausea, No vomiting, No diarrhea, No constipation, No GI bleeding, No problem reported (no heartburn) Musculoskeletal: No problem reported Genitourinary - Male: No problem reported Neurologic: No problem reported Psychiatric: No problem reported Endocrine: No problem reported Hematologic / Lymphatic: No abnormal bleeding/bruising, No problem reported Integumentary: No bleeding Physical Exam: General Appearance: WD/WN, no apparent distress Eyes: normal inspection, EOMI, sclerae normal ENT: hearing grossly normal Neck: trachea midline Respiratory/Chest: lungs clear, normal breath sounds, no respiratory distress, no accessory muscle use Cardiovascular: regular rate, rhythm, no edema, no gallop, no JVD, no murmur , normal peripheral pulses Abdomen / GI: normal bowel sounds, non tender, soft, no organomegaly, no pulsatile mass Extremities: normal inspection, no calf tenderness, normal capillary refill , no pedal edema, normal range of motion Neurologic/Psychiatric: fish icer II-XII nml as tested, no motor/sensory deficits , alert, normal mood/affect, normal reflexes, oriented x 3 Skin: normal color, warm/dry, no rash Hospital Course This pt is a 37 yo male with no significant past medical history who presented to the ER with acute onset of left upper and lower extremity paresthesias and a brief vague period of blurry vision and SOB. There was no definite weakness and he was able to ambulate during the episode. All symptoms resolved shortly after arrival in ER. Patient has been working hard with the last month and his multiple jobs are stressful. He reports he does not drink much water at all during the day and his creatinine was elevated at 1.43 on admission. He was admitted for a CVA workup. TeleNeuro consult in ER was performed and there was no indication for tPA. He had no significant events on telemetry overnight. His MRI brain, MRA Head, Carotid US, and Head CT were all normal. His ECG was normal. His ECHO was normal. He was seen by Neurology who did NOT think he had a TIA; he rather thought this could possibly be vasospasm or a nonspecific vascular origin issue although no migraine history. Neuro thought this could be related to his stress/fatigue, strenuous physical labor, and possibly elevated blood pressure (had systolic in the 140s on admission). Their recommendation was to still keep pt on ASA 81mg po once daily. Renal function improved overnight with IVFs. Pt was encouraged to stay better hydrated in the future. He was also encouraged to quit smoking even though it is rare use. He was discharged to home in good condition with no limitations. Total Time Spent: Greater than 30 minutes This includes examination of the patient, discharge planning, medication reconciliation, and communication with other providers. Discharge Instructions Please refer to the electronic Patient Visit Report (Discharge Instructions) for additional information. Follow-Up PCP within 1-2 weeks Additional Copies To Durga Merida M.D.
[2017-08-06 08:03] LABS: ESTIMATED AVERAGE GLUCOSE 114 mg/dl; HA1C FLAG Normal (Normal)
[2017-08-06] MEDS ORDERED: ASPIRIN 81 MG ECTAB PO SCH (09:00)
== END 2017-08-05 12:17 | disposition home or self-care (01) | DRG 92 ==
LOC: C.EDB 11:10 → C.2T 13:32 → ENRESERV 13:51
PROVIDERS: ADMIT Specialist; ATTEND Family Medicine
DX: R20.2 Paresthesia of skin (principal); N17.9 Acute kidney failure, unspecified; R53.1 Weakness; R03.0 Elevated blood-pressure reading, without diagnosis of hypertension; E78.1 Pure hyperglyceridemia; F17.210 Nicotine dependence, cigarettes, uncomplicated; Z82.49 Family history of ischemic heart disease and other diseases of the circulatory system

== ENCOUNTER → 2017-11-01 | Outpatient (CLI) | payer BC ==
[~2017-11-01] VITALS: Ht 190.5 cm; Wt 99.7 kg
[~2017-11-01] MED LIST changes: +ASPEC81 PO; -OXYC-57 PO
[2017-11-01 15:41] VITALS: BP 131/89; PULSE 77; Ht 190.5 cm; Wt 99.7 kg
== END | disposition home or self-care (01) ==
LOC: C.NEUR 14:25
PROVIDERS: ATTEND Internal Medicine Pulmonary Disease
DX: G47.33 Obstructive sleep apnea (adult) (pediatric) (principal)

== ENCOUNTER → 2017-11-21 | Outpatient (CLI) | payer BC ==
--- NOTE | 2017-11-23 14:56 | POLYSOMNOGRAPH REPORT ---
SLEEP STUDY REPORT CLINICAL DATA: The patient is a 37-year-old male with a history of observed sleep apneas. He has a history of snoring. He has disturbed nocturnal sleep. He has excessive daytime somnolence including sleepiness driving. His Schlater sleepiness scale score is 11. On the evening of 11/21/2017, a home sleep apnea test was performed using the Jessica type 3 monitor. The patient was referred by Dr. Merida. RECORDING RESULTS: Total recording time was 10 hours. The patient's estimated sleep time was 10 hours. RESPIRATORY DATA: The patient had a total of 575 respiratory events including 140 obstructive apneas, 341 mixed apneas, 77 central apneas, and 17 hypopneas. Hypopneas were scored according to the 4% desaturation rule. The maximum respiratory event was 56 seconds. This reflects severe sleep apnea. OXIMETRY DATA: The mean saturation for the night was 89%. The minimum saturation was 75%. There was a total of 207 minutes with saturations less than 89%. HEART RATE DATA: The lowest heart rate was 46 beats per minute. The mean heart rate was 58 beats per minute. SNORING DATA: Snoring was present throughout the test. IMPRESSION: Severe obstructive sleep apnea. COMMENTS: This patient had severe apnea. The majority were mixed apneas. He had a modest number of centrals and a moderate number of obstructives. Clearly, this should be treated in light of his symptoms and the severity of the sleep apnea. It would be suggested that if possible and approved by his insurance that an in-lab CPAP titration be done in light of the frequency of the mixed and central apneas. RECOMMENDATIONS: Advised treatment with nasal CPAP. This could best be done by an in-lab CPAP titration, if feasible. Alternatively, if not approved by insurance, this would need to be treated with auto CPAP.
== END | disposition home or self-care (01) ==
LOC: C.NEUR 09:26
PROVIDERS: ATTEND Internal Medicine Pulmonary Disease
DX: R06.81 Apnea, not elsewhere classified (principal); G47.33 Obstructive sleep apnea (adult) (pediatric); R06.83 Snoring

== ENCOUNTER → 2017-12-04 | Outpatient (CLI) | payer BC ==
--- NOTE | 2017-12-05 07:51 | PAP/PSG TECHNICIAN REPORT ---
[facility] Search Analyst Polysomnogram Report Study name: None Report date: 12/05/2017 Study date: 12/04/2017 Referring Physician: Dr. Niall Brito DO Name: HEATHER QUINTERO Interpreting Physician: Niall Brito D.O. Date of : 1980 Search Analyst: Chelsea Jimenez RPSCIRILO. Sex: Male Age: 37 StudyType: PSG Weight: 219 lbs Height: 37 years, Height 6' 3" : BMI: 27.37 Medications: Fish Oil, Aspirin Patient History 37 yr. old male here for a new titration sleep study. Patient had a HST that showed an ABIGAIL of 57.5. 08/03. Parameters Monitored NPSG: E1-M2, E2-M1, Fp1-M2, Fp2-M1, F3-M2, F4-M2, F4-M1, C3-M2, C4-M2, C4-M1, O1-M2, O2-M2, O2-M1, T3-M2, T4-M1, P3-M2, P4-M1, CHIN1, CHIN2, HR, EKG, Legs, PFLOW, SNOR, FLOW, CFLOW, Tidal Volume, THOR, ABDO, SpO2, PLTH, CPRESS, ETCO2 Wave, ETCO2, pH Sleep Architecture Sleep Stages Time at Lights Off 9:37:55 PM STAGES Time (min.) TST (%) Time at Lights On 5:23:25 AM Wake 57.0 -- Total Recording Time (TRT) 464.50 min. N1 27.0 7 Total Sleep Period (TSP) 450.5 min. N2 201.0 49 Total Sleep Time (TST) 407.5min. N3 74.0 18 Awake Time 57.0 min. REM 105.5 26 Wake after Sleep Onset 50.0 min. Sleep Efficiency (SE) 88 % Sleep Onset Latency (ANA LUISA) 8.0 min. Number of Stage 1 Shifts None Awakenings 25 Stage Changes 79 Number of REM periods 6 REM 105.5 26 REM Latency 60.5 min. NREM 302.0 74 Body Position Analysis Supine Right Left Side Prone Vertical Total Sleep Time (min.) 250.8 161.2 26.9 188.09 0.0 0.2 Total Sleep Time (%) 54% 40% 7% 46 0% N/A% Total Sleep Time REM (min.) 25.0 64.0 16.5 None 0.0 0.0 Total Sleep Time NREM (min.) 194.4 97.2 10.4 None 0.0 0.0 Intermittent Wake (min.) 31.4 14.9 10.5 None 0.0 0.2 Total Sleep Period (%) 53% None None None None None Arousals Myoclonus (PLM) * Events Count Index Events Count Index Spontaneous 2 0 Events Awake (PLMW) 91 95.8 Respiratory 25 4.0 Events Asleep w/ Arousal (PLMA) 30 4.4 PLM 30 4 Events Asleep w/o Arousal (PLMS) 155 22.8 Snoring 3 0 Total Asleep 185 27.2 Total 60 9 Total 276 36 Respiratory Analysis * CA OA MA CH H RERA Total Count 58 13 17 0 61 1 149 Index 8.5 1.9 2.5 0 9.0 0 22.1 Mean Duration 23.7 28.3 31.3 0.00 34.6 35.2 29.5 Longest Duration 35.4 39.7 49.4 0.00 49.4 35.2 90.6 Respiratory Event Summary Total Supine ~Supine Right Left Prone REM NREM Apneas Count 88 75 13 8 5 N/A 0 88 Index 13.0 21 4 3.0 11.2 N/A 0 17 Hypopneas (4% Desat) Count 61 33 28 23 5 N/A 9 52 Index 9.0 9.0 9 8.6 11.2 N/A 5.1 10.3 Apneas & All Hypopneas Count 149 108 41 31 10 N/A 9 140 Index 21.9 30 13 12 22 N/A 5.1 27.8 Respiratory Events (Sack Cleaning Hand+All Hyp+RERA) Count 149 109 41 31 10 N/A 9 140 Index 22.1 30 13 11.5 22.3 N/A 5.7 27.8 Respiratory Related Arousal Count 25 109 3 0 3 N/A 1 26 Index 4.0 7 1 0 7 N/A 1 5 Snoring Analysis Supine Right Left Prone REM NREM Total Snore duration 9.6 min Snores count 166 68 1 N/A 9 226 235 Snore mean duration 2.5 Sec Snores index 45 25 2 N/A 5.1 44.9 34.6 TST with snoring (%) 2.4% Desaturation Event Summary: Minimum %SpO2 Event Count Mean/Min/Max Duration(sec.) Desaturation Index % Time In Bed > 90 179 28.6 / 5.8 / 58.5 26.2 92.3 86 - 90 16 17.5 / 9.3 / 28.8 37.3 5.8 81 - 85 2 14.8 / 9.3 / 20.3 15.1 1.8 76 - 80 0 N/A 0.0 0.1 71 - 75 0 N/A 0.0 0.0 66 - 70 0 N/A 0.0 0.0 61 - 65 0 N/A 0.0 0.0 56 - 60 0 N/A 0.0 0.0 51 - 55 0 N/A 0.0 0.0 < 50 0 N/A 0.0 0.0 Total REM NREM Awake <50% 0.0 min. 0.0 min. 0.0 min. 0.0 min. 51 - 60% 0.0 min. 0.0 min. 0.0 min. 0.0 min. 61 - 70% 0.0 min. 0.0 min. 0.0 min. 0.0 min. 71 - 80% 0.5 min. 0.0 min. 0.5 min. 0.0 min. 81 - 90% 33.7 min. 0.8 min. 24.6 min. 8.3 min. 91 - 100% 409.7 min. 101.6 min. 264.6 min. 43.5 min. Average 93 94 93 93 Minimum SpO2 73 90 79 73 Desaturation Event Index 24.3 8.0 28.0 36.8 # Desat. Events below 89% 87 N/A 70 17 Time(%) with Saturation below 89% 4.2 0.0 3.3 1.0 Time(min.) with Saturation below 89% 18.9 0.0 14.6 4.3 Time (mins) REM (mins) NREM (mins) % of TST SpO2 Below 90% 102 6 N96 4.6 SpO2 Below 88% 27 0 0 3 Heart Rate Analysis Min (bpm) Max (bpm) Average (bpm) Awake 40 136 65 NREM 49 127 58 REM 50 83 61 Overall 49 127 59 Supplemental O2 Values Minimum O2 level: None Value Start Time End Time Search Analyst Comments Mr. Quintero slept in the right, left, and supine positions. No cardiac arrhythmia or PLMs noted. No bruxism noted. CPAP was initiated at +4 CMH2O room air and up-titrated to a optimal level of +12 CMH2O Cflex 1 . Mr. Quintero was still having central apneas and was switched over to BIPAP. PAP initiated at an IPAP of +16 CMH2O and an EPAP of +12 CMH2O up-titrated to an optimal level of: IPAP +18 CMH2O, EPAP + 22KFX05 BiFlex 1 with a rate of 10 BPM. A ResMed Mirage Quattro full face mask was used during titration. Mr. Quintero did not wake to use the restroom during the night. Mr. Quintero stated, "(Example) I did not sleep as well as I do when I am in my own bed". The final report will be interpreted and signed by a sleep physician. The completed physician report will then be placed in the patient medical record. Therapy Event: Therapy (cm H20) 0 4 5 6 7 8 9 Total Time at Pressure (min.) 0.8 25.7 10.1 15.9 9.8 9.4 14.1 TST at Pressure (min.) 0.0 17.5 10.1 14.9 9.8 9.4 14.1 # Periods 1 1 1 1 1 1 1 Sleep Onset (min.) N/A 7.2 0.0 0.0 0.0 0.0 0.0 REM Onset (min.) N/A N/A N/A N/A N/A 6.2 0.0 Sleep Efficiency % 0 68 100 93 100 100 100 Wakefulness (%) 100.0 31.8 0.0 6.3 0.0 0.0 0.0 Wakefulness (min.) 0.8 8.2 0.0 1.0 0.0 0.0 0.0 NREM 1 (%) 0.0 21.4 0.0 3.1 0.0 0.0 0.0 NREM 1 (min.) 0.0 5.5 0.0 0.5 0.0 0.0 0.0 NREM 2 (%) 0.0 46.8 100.0 90.6 82.0 64.1 0.0 NREM 2 (min.) 0.0 12.0 10.1 14.4 8.0 6.0 0.0 NREM 3 (%) 0.0 0.0 0.0 0.0 18.0 2.5 0.0 NREM 3 (min.) 0.0 0.0 0.0 0.0 1.8 0.2 0.0 REM (%) 0.0 0.0 0.0 0.0 0.0 33.4 100.0 REM (min.) 0.0 0.0 0.0 0.0 0.0 3.1 14.1 # Arousals N/A 18 3 0 1 0 0 Arousal Index N/A 61.6 17.9 0.0 6.1 0.0 0.0 # Snore N/A 24 27 42 24 1 3 Snore Index N/A 82.1 161.2 169.2 147.0 6.4 12.7 AHI N/A 89.0 77.6 56.4 49.0 6.4 12.7 AHI Supine N/A 89.0 77.6 61.7 N/A N/A N/A AHI Non-Supine N/A N/A N/A 55.1 49.0 6.4 12.7 NREM AHI N/A 89.0 77.6 56.4 49.0 0.0 N/A REM AHI N/A N/A N/A N/A N/A 19.2 12.7 RDI N/A 89.0 77.6 56.4 49.0 6.4 12.7 # Obstructive N/A 1 6 5 0 0 0 # Central Ap N/A 13 0 2 0 0 0 # Mixed N/A 11 4 1 0 0 0 # Hypopneas N/A 1 3 6 8 1 3 RERAS N/A 0 0 0 0 0 0 Total Respiratory Events N/A 26 13 14 8 1 3 Time Below SpO2 89.00% (min.) 0.0 5.4 4.0 2.3 1.1 0.0 0.0 Mean NREM SpO2 (%) N/A 90 89 92 93 94 N/A Mean REM SpO2 (%) N/A N/A N/A N/A N/A 93 94 Mean Sleep SpO2 (%) N/A 90 89 92 93 94 94 Min NREM SpO2 (%) N/A 80 79 81 83 91 N/A Min REM SpO2 (%) N/A N/A N/A N/A N/A 91 90 Position Supine (min.) 0.0 17.5 10.1 2.9 0.0 0.0 0.0 Position Non-supine (min.) 0.0 0.0 0.0 12.0 9.8 9.4 14.1 LM Index Sleep N/A 102.7 71.6 64.5 67.4 0.0 4.2 LM Index NREM N/A 102.7 71.6 64.5 67.4 0.0 N/A LM Index REM N/A N/A N/A N/A N/A 0.0 4.2 Mean Heart Rate (bpm) N/A 59 60 58 59 63 66 Min Heart Rate (bpm) N/A 51 51 49 51 56 59 Therapy (cm H20) 10 11 12 16/12 1713 1813 13 Total Time at Pressure (min.) 86.1 12.1 7.2 91.8 54.4 103.7 23.5 TST at Pressure (min.) 81.1 12.1 7.2 89.3 41.9 84.2 16.0 # Periods 1 1 1 1 1 1 1 Sleep Onset (min.) 0.0 0.0 0.0 0.0 0.0 0.0 0.0 REM Onset (min.) 0.0 N/A N/A 12.9 27.6 36.7 0.0 Sleep Efficiency % 94 100 100 97 77 81 68 Wakefulness (%) 5.8 0.0 0.0 2.7 23.0 18.8 31.9 Wakefulness (min.) 5.0 0.0 0.0 2.5 12.5 19.5 7.5 NREM 1 (%) 6.4 0.0 0.0 2.2 10.1 6.8 4.3 NREM 1 (min.) 5.5 0.0 0.0 2.0 5.5 7.0 1.0 NREM 2 (%) 23.6 100.0 100.0 42.3 36.6 49.9 2.1 NREM 2 (min.) 20.3 12.1 7.2 38.8 19.9 51.7 0.5 NREM 3 (%) 46.5 0.0 0.0 34.9 0.0 0.0 0.0 NREM 3 (min.) 40.0 0.0 0.0 32.0 0.0 0.0 0.0 REM (%) 17.7 0.0 0.0 18.0 30.3 24.6 61.7 REM (min.) 15.2 0.0 0.0 16.5 16.5 25.5 14.5 # Arousals 5 7 4 8 10 3 1 Arousal Index 3.7 34.8 33.2 5.4 14.3 2.1 3.8 # Snore 38 23 17 21 6 9 0 Snore Index 28.1 114.3 141.3 14.1 8.6 6.4 0.0 AHI 14.8 64.6 83.1 9.4 25.8 6.4 0.0 AHI Supine 75.5 64.6 83.1 9.4 31.9 2.4 N/A AHI Non-Supine 0.9 N/A N/A N/A 22.3 12.4 0.0 NREM AHI 18.2 64.6 83.1 11.5 40.2 5.1 0.0 REM AHI 0.0 N/A N/A 0.0 3.6 9.4 0.0 RDI 14.8 64.6 83.1 10.1 25.8 6.4 0.0 # Obstructive 0 1 0 0 0 0 0 # Central Ap 12 5 5 11 10 0 0 # Mixed 1 0 0 0 0 0 0 # Hypopneas 7 7 5 3 8 9 0 RERAS 0 0 0 1 0 0 0 Total Respiratory Events 20 13 10 15 18 9 0 Time Below SpO2 89.00% (min.) 0.1 0.0 0.2 0.0 1.0 0.5 0.0 Mean NREM SpO2 (%) 94 94 94 94 94 94 93 Mean REM SpO2 (%) 94 N/A N/A 94 94 94 93 Mean Sleep SpO2 (%) 94 94 94 94 94 94 93 Min NREM SpO2 (%) 82 89 87 89 87 84 92 Min REM SpO2 (%) 92 N/A N/A 91 92 90 90 Position Supine (min.) 15.1 12.1 7.2 89.3 15.0 50.2 0.0 Position Non-supine (min.) 66.0 0.0 0.0 0.0 26.9 34.0 16.0 LM Index Sleep 20.0 54.7 83.1 13.4 24.4 15.0 33.8 LM Index NREM 23.7 54.7 83.1 13.2 37.8 16.4 200.0 LM Index REM 3.9 N/A N/A 14.5 3.6 11.8 16.6 Mean Heart Rate (bpm) 61 58 59 59 57 56 59 Min Heart Rate (bpm) 52 54 54 50 51 49 54
--- NOTE | 2017-12-06 17:00 | POLYSOMNOGRAPH REPORT ---
SLEEP STUDY REPORT CLINICAL DATA: The patient is a 37-year-old male with a history of snoring and observed apneas. A home sleep study was done on 11/21/2017 showing severe sleep apnea with an apnea/hypopnea index of 57.5. He did have a modest number of central apneas as well as mixed apneas. In light of this, an in-lab titration study was advised. This was an in-lab overnight titration study. The patient's BMI is 27.37. His Crosby sleepiness scale score is 11 out of a possible 24. SLEEP ARCHITECTURE: The total sleep period was 450.5 minutes. The total sleep time was 407.5 minutes. The sleep efficiency was borderline normal at 88%. The sleep latency was 8 minutes. Wake after sleep onset was 50 minutes. The REM latency was 60.5 minutes. There were 5 REM periods during the night. Sleep consisted of stage N1 7%, stage N2 49%, stage N3 18%, and stage REM 26%. AROUSAL DATA: The patient had a total of 60 arousals including 2 spontaneous arousals, 25 respiratory arousals, 30 PLM arousals, and 3 snoring arousals. The arousal index was 9. PERIODIC LIMB MOVEMENT DATA: The patient had 185 periodic limb movements of sleep for a PLM index of 27.2. There were 30 arousals, associated with limb movements for a PLM arousal index of 4.4. ECHOCARDIOGRAM: The underlying cardiac rhythm was normal sinus. The cardiac rates ranged from 50-83 beats per minute. The average heart rate was 61 beats per minute. No arrhythmia was noted. RESPIRATORY DATA: The patient's nocturnal respiratory events were treated first with CPAP and then with BiPAP because he was having central sleep apnea. For the night, he had a total of 149 respiratory events including 58 central apneas, 13 obstructive apneas, 17 mixed apneas, and 61 hypopneas. Hypopneas were scored according to the 4% desaturation rule. There was also 1 RERA. The longest apnea was 49.4 seconds and that was a mixed apnea. The mean duration of the hypopneas was 34.6 seconds. The apnea hypopnea index was 21.9 events per hour. At the final pressure of 19/13, the patient had no respiratory events for an apnea-hypopnea index of 0. However, there was only 14.1 minutes at that level. OXIMETRY DATA: The average saturation for the night was 93%. The minimum saturation was 73%. There was a total of 18.9 minutes with saturations less than 89%. Most of the desaturations occurred early on the night before the events were titrated upward. At the final pressure, there was no significant desaturations. 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 No cardiac arrhythmia noted. No bruxism noted. CPAP was initiated at 4 cm and up titrated to a level of 12 cm. However, he was still having central apneas. He was switched to BiPAP with a pressure of 16/12. He was titrated upward to a final pressure of IPAP 19, EPAP 13 with Bi-Flex 1 and a backup rate of 10 breaths per minute. A ResMed Mirage Quattro full face mask was used. The patient did not awaken to use the restroom during the night. He stated that he did not sleep as well as he did in his own bed. IMPRESSION: Severe obstructive sleep apnea -- improved with BiPAP 19/13, Bi-Flex 1, and a backup rate of 10. COMMENTS: The patient did develop central sleep apnea. Thus, this reflects complex sleep apnea. Most of the central apneas occurred early on. He did, however then developed central apneas later on. There were no central apneas after 3:00 a.m. In the post-sleep questionnaire, the patient commented that the mask he had hurt the bridge of his nose. That is not all that uncommon with that particular mask. RECOMMENDATIONS: 1. The patient should be started on BiPAP 19/13 with Bi-Flex 1 and a backup rate of 10. 2. We will order full face mask of choice. 3. The patient should be advised to avoid sleeping in the supine position. 4. The patient will need a followup between day #31 and day #90, after receiving BiPAP.
== END | disposition home or self-care (01) ==
LOC: C.NEUR 21:00
PROVIDERS: ATTEND Internal Medicine Pulmonary Disease
DX: G47.33 Obstructive sleep apnea (adult) (pediatric) (principal)